=== PATIENT | female | born 1985 | race Caucasian/White ===

== ENCOUNTER → 2016-11-02 | Outpatient (CLI) | payer BC ==
[2016-11-02 15:21] LABS: CHLORIDE,CL 108 mmol/L (98-110); SODIUM,NA 139 mmol/L (136-146)
== END ==
LOC: MW.CHOBGYN 14:50
PROVIDERS: ATTEND Nurse Practitioner Women's Health
DX: Z51.81 Encounter for therapeutic drug level monitoring (principal); Z79.899 Other long term (current) drug therapy; R00.2 Palpitations; R63.4 Abnormal weight loss; M25.521 Pain in right elbow; M25.522 Pain in left elbow
CPT/HCPCS: 36415; 80048; 84443; 85652; 86140

== ENCOUNTER → 2016-11-09 | Outpatient (CLI) | payer BC ==
[2016-11-09 12:00] LABS: CHLORIDE,CL 106 mmol/L (98-110); SODIUM,NA 138 mmol/L (136-146)
== END ==
LOC: MW.CHOBGYN 11:16
PROVIDERS: ATTEND Nurse Practitioner Women's Health
DX: R63.4 Abnormal weight loss (principal); D64.9 Anemia, unspecified
CPT/HCPCS: 36415; 80053; 81001; 82607; 82728; 82746; 83550; 85025

== ENCOUNTER → 2016-11-28 | Outpatient (CLI) | payer BC | END | disposition home or self-care (01) | LOC: MW.CHOBGYN 07:57 | PROVIDERS: ATTEND Nurse Practitioner Women's Health | DX: R63.4 Abnormal weight loss (principal); R63.1 Polydipsia | CPT/HCPCS: 36415; 82533; 82627; 82670; 83498; 84144; 84402 ==

== ENCOUNTER → 2016-12-31 | Outpatient (CLI) | payer BC | LOC: MW.CHOBGYN 13:27 | PROVIDERS: ATTEND Nurse Practitioner Women's Health | DX: D64.9 Anemia, unspecified (principal); R63.1 Polydipsia; E27.0 Other adrenocortical overactivity | CPT/HCPCS: 36415; 82530; 82728; 82947; 84439 ==

== ENCOUNTER 2019-07-27 11:14 | Day surgery (SDC) | payer BC ==
[~2019-07-27 11:14] MED LIST: Lactated Ringers 1,000 ML IV SCH; Midazolam 1 MG/ML 2 ML SDV ONE; Rocuronium 100 MG/10 ML Syringe ONE; Sodium Chloride 0.9% 10 ML SDV IV PRN; Sodium Chloride 0.9% 10 ML Syringe FLUSH PRN; Sodium Chloride 0.9% 2.5 ML Syringe FLUSH PRN; Sodium Chloride 0.9% 20 ML ONE; ePHEDrine 50 MG/ML SDV ONE; fentaNYL 100 MCG/2 ML SDV ONE
[2019-07-27 13:28] VITALS: BP 103/66; PULSE 76
--- NOTE | 2019-07-27 13:40 | PCM.PREANE ---
Preanesthetic Assessment - Anesthesia/Transfusion/Family Hx Anesthesia History: Prior Anesthesia Without Reaction Family History of Anesthesia Reaction: No Transfusion History: No Prior Transfusion(s) Intubation History: Unknown - Review of Systems General: No Symptoms Pulmonary: No Symptoms Cardiovascular: No Symptoms Gastrointestinal: No Symptoms Neurological: No Symptoms Other: Reports: None - Physical Assessment NPO Status Date: 07/26/19 NPO Status Time: 00:00 Vital Signs: Last Vital Signs Temp 37.1 C 07/27/19 11:45 Pulse 76 07/27/19 11:45 Resp 16 07/27/19 11:45 BP 103/66 07/27/19 11:45 Pulse Ox 97 07/27/19 11:45 Height: 5 ft 1 in Weight: 53.07 kg ASA Class: 2 Mental Status: Alert & Oriented x3 Airway Class: Mallampati = 2 Dentition: Reports: Normal Dentition Thyro-Mental Finger Breadths: 3 Mouth Opening Finger Breadths: 2 (small mouth) ROM/Head Extension: Full Lungs: Clear to Auscultation, Normal Respiratory Effort Cardiovascular: Regular Rate, Regular Rhythm - Lab Values: Laboratory Last Values WBC 8.23 K/uL (4.0-11.0) 07/27/19 12:04 RBC 4.57 M/uL (4.30-5.90) 07/27/19 12:04 Hgb 13.1 g/dL (12.0-16.0) 07/27/19 12:04 Hct 39.4 % (36.0-46.0) 07/27/19 12:04 MCV 86.2 fL (80.0-98.0) 07/27/19 12:04 MCH 28.7 pg (27.0-32.0) 07/27/19 12:04 MCHC 33.2 g/dL (31.0-37.0) 07/27/19 12:04 RDW Std Deviation 41.8 fl (28.0-62.0) 07/27/19 12:04 RDW Coeff of Jefry 13 % (11.0-15.0) 07/27/19 12:04 Plt Count 233 K/uL (150-400) 07/27/19 12:04 MPV 10.70 fL (7.40-12.00) 07/27/19 12:04 Nucleated RBC % 0.0 /100WBC 07/27/19 12:04 Nucleated RBCs # 0 K/uL 07/27/19 12:04 HCG, Qual NEGATIVE (NEG) 07/27/19 12:04 - Allergies Allergies/Adverse Reactions: Allergies Allergy/AdvReac Type Severity Reaction Status Date / Time No Known Allergies Allergy Verified 07/14/19 14:32 - Blood Blood Available: No - Anesthesia Plan Pre-Op Medication Ordered: None - Acknowledgements Anesthesia Type Planned: General Anesthesia Pt an Appropriate Candidate for the Planned Anesthesia: Yes Alternatives and Risks of Anesthesia Discussed w Pt/Guardian: Yes Pt/Guardian Understands and Agrees with Anesthesia Plan: Yes PreAnesthesia Questionnaire HEENT History: Reports: None Cardiovascular History: Reports: None Respiratory History: Reports: None Gastrointestinal History: Reports: None Genitourinary History: Reports: Pyelonephritis, UTI, Recurrent 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: , 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 Other OB/BYN History: Csx3 Other Musculoskeletal History: occasional neck pain Neurological History: Reports: None, Vertigo Other Neuro History: testing for multiple sclerosis Psychiatric History: Reports: Anxiety Endocrine/Metabolic History: Reports: None Hematologic History: Reports: None Immunologic History: Reports: None Oncologic (Cancer) History: Reports: None Dermatologic History: Reports: None - Past Surgical History Head Surgeries/Procedures: Reports: None HEENT Surgical History: Reports: Other (See Below) Other HEENT Surgeries/Procedures: skin tag removed from ear as a child Cardiovascular Surgical History: Reports: None Respiratory Surgical History: Reports: None GI Surgical History: Reports: Colonoscopy Female Surgical History: Reports: Section (x3) Endocrine Surgical History: Reports: None Neurological Surgical History: Reports: None Musculoskeletal Surgical History: Reports: None Oncologic Surgical History: Reports: None Dermatological Surgical History: Reports: None - SUBSTANCE USE Smoking Status *Q: Former Smoker Tobacco Use Within Last Twelve Months: Snuff/Dip - HOME MEDS Home Medications: Home Meds Cholecalciferol (Vitamin D3) [Vitamin D3] 1 tab PO DAILY 07/14/19 [History] Magnesium 200 mg PO DAILY 07/14/19 [History] - CURRENT (IN HOUSE) MEDS Current Meds: Current Medications Lactated Ringer's (Ringers, Lactated) 1,000 mls @ 100 mls/hr IV ASDIRECTED PREETHI Sodium Chloride (Saline Flush) 10 ml FLUSH ASDIRECTED PRN PRN Reason: Keep Vein Open Sodium Chloride (Saline Flush) 2.5 ml FLUSH ASDIRECTED PRN PRN Reason: Keep Vein Open Sodium Chloride (Normal Saline) 10 ml IV ASDIRECTED PRN PRN Reason: IV Use Discontinued Medications Ephedrine Sulfate (Ephedrine Sulfate) Confirm Administered Dose 50 mg .ROUTE .STK-MED ONE Stop: 07/27/19 10:46 Fentanyl (Sublimaze) Confirm Administered Dose 100 mcg .ROUTE .STK-MED ONE Stop: 07/27/19 10:45 Lactated Ringer's (Ringers, Lactated) 1,000 mls @ 100 mls/hr IV ASDIRECTED PREETHI Sodium Chloride (Normal Saline) Confirm Administered Dose 20 mls @ as directed .ROUTE .STK-MED ONE Stop: 07/27/19 10:49 Midazolam HCl (Versed 1 Mg/Ml) Confirm Administered Dose 2 mg .ROUTE .STK-MED ONE Stop: 07/27/19 10:45 Rocuronium [place] (Zemuron) Confirm Administered Dose 100 mg .ROUTE .STK-MED ONE Stop: 07/27/19 10:46 Sodium Chloride (Saline Flush) 10 ml FLUSH ASDIRECTED PRN PRN Reason: Keep Vein Open Sodium Chloride (Saline Flush) 2.5 ml FLUSH ASDIRECTED PRN PRN Reason: Keep Vein Open Sodium Chloride (Normal Saline) 10 ml IV ASDIRECTED PRN PRN Reason: IV Use Sodium Chloride (Saline Flush) 10 ml FLUSH ASDIRECTED PRN PRN Reason: Keep Vein Open Sodium Chloride (Saline Flush) 2.5 ml FLUSH ASDIRECTED PRN PRN Reason: Keep Vein Open Sodium Chloride (Normal Saline) 10 ml IV ASDIRECTED PRN PRN Reason: IV Use Succinylcholine Chloride (Succinylcholine Chloride) Confirm Administered Dose 200 mg .ROUTE .STK-MED ONE Stop: 07/27/19 10:46
== END 2019-07-27 14:30 | disposition home or self-care (01) ==
LOC: MW.SDS 11:14
PROVIDERS: ATTEND Obstetrics & Gynecology
DX: N92.1 Excessive and frequent menstruation with irregular cycle (principal); Z53.8 Procedure and treatment not carried out for other reasons
CPT/HCPCS: 36415; 84703; 85027; J0330; J7120; J2250; J3010

== ENCOUNTER 2019-08-17 07:50 | Day surgery (SDC) | payer BC ==
[~2019-08-17 07:50] MED LIST changes: -Midazolam 1 MG/ML 2 ML SDV ONE; -Rocuronium 100 MG/10 ML Syringe ONE; -Sodium Chloride 0.9% 20 ML ONE; -ePHEDrine 50 MG/ML SDV ONE; -fentaNYL 100 MCG/2 ML SDV ONE
--- NOTE | 2019-08-17 08:30 | PCM.PREANE ---
Preanesthetic Assessment - Anesthesia/Transfusion/Family Hx Anesthesia History: Prior Anesthesia Without Reaction Family History of Anesthesia Reaction: No Transfusion History: No Prior Transfusion(s) Intubation History: Unknown - Review of Systems General: No Symptoms Pulmonary: No Symptoms Cardiovascular: No Symptoms Gastrointestinal: No Symptoms Neurological: No Symptoms Other: Reports: None - Physical Assessment NPO Status Date: 08/16/19 Height: 5 ft 1 in Weight: 53.07 kg ASA Class: 1 Mental Status: Alert & Oriented x3 Airway Class: Mallampati = 2 Dentition: Reports: Normal Dentition ROM/Head Extension: Full Lungs: Clear to Auscultation, Normal Respiratory Effort - Lab Values: Laboratory Last Values WBC 5.12 K/uL (4.0-11.0) 08/17/19 08:13 RBC 4.44 M/uL (4.30-5.90) 08/17/19 08:13 Hgb 12.6 g/dL (12.0-16.0) 08/17/19 08:13 Hct 37.9 % (36.0-46.0) 08/17/19 08:13 MCV 85.4 fL (80.0-98.0) 08/17/19 08:13 MCH 28.4 pg (27.0-32.0) 08/17/19 08:13 MCHC 33.2 g/dL (31.0-37.0) 08/17/19 08:13 RDW Std Deviation 41.6 fl (28.0-62.0) 08/17/19 08:13 RDW Coeff of Jefry 13 % (11.0-15.0) 08/17/19 08:13 Plt Count 232 K/uL (150-400) 08/17/19 08:13 MPV 11.40 fL (7.40-12.00) 08/17/19 08:13 Nucleated RBC % 0.0 /100WBC 08/17/19 08:13 Nucleated RBCs # 0 K/uL 08/17/19 08:13 - Allergies Allergies/Adverse Reactions: Allergies Allergy/AdvReac Type Severity Reaction Status Date / Time No Known Allergies Allergy Verified 08/10/19 10:05 - Blood Blood Available: No - Anesthesia Plan Pre-Op Medication Ordered: None - Acknowledgements Anesthesia Type Planned: General Anesthesia Pt an Appropriate Candidate for the Planned Anesthesia: Yes Alternatives and Risks of Anesthesia Discussed w Pt/Guardian: Yes Pt/Guardian Understands and Agrees with Anesthesia Plan: Yes Additional Comments: anes prob list: taking oral magnesium from chiropractor for pain,AUB PLAN: ga/lma with toradol PreAnesthesia Questionnaire HEENT History: Reports: None Cardiovascular History: Reports: None Respiratory History: Reports: None Gastrointestinal History: Reports: None Genitourinary History: Reports: Pyelonephritis, UTI, Recurrent 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: , 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 Other OB/BYN History: Csx3 Musculoskeletal History: Reports: Neck Pain, Chronic Neurological History: Reports: None Psychiatric History: Reports: Anxiety, Depression Endocrine/Metabolic History: Reports: None Hematologic History: Reports: None Immunologic History: Reports: None Oncologic (Cancer) History: Reports: None Dermatologic History: Reports: None - Past Surgical History Head Surgeries/Procedures: Reports: None HEENT Surgical History: Reports: Other (See Below) Other HEENT Surgeries/Procedures: skin tag removed from ear as a child Cardiovascular Surgical History: Reports: None Respiratory Surgical History: Reports: None GI Surgical History: Reports: Colonoscopy Female Surgical History: Reports: Section Endocrine Surgical History: Reports: None Neurological Surgical History: Reports: None Musculoskeletal Surgical History: Reports: None Oncologic Surgical History: Reports: None Dermatological Surgical History: Reports: None - SUBSTANCE USE Smoking Status *Q: Former Smoker Tobacco Use Within Last Twelve Months: Cigarettes - HOME MEDS Home Medications: Home Meds Cholecalciferol (Vitamin D3) [Vitamin D3] 1 tab PO DAILY 07/14/19 [History] Magnesium 200 mg PO DAILY 07/14/19 [History] Pregabalin [Lyrica] 50 mg PO BID 08/10/19 [History] Sertraline HCl 100 mg PO DAILY 08/10/19 [History] - CURRENT (IN HOUSE) MEDS Current Meds: Current Medications Lactated Ringer's (Ringers, Lactated) 1,000 mls @ 125 mls/hr IV ASDIRECTED PREETHI Sodium Chloride (Saline Flush) 10 ml FLUSH ASDIRECTED PRN PRN Reason: Keep Vein Open Sodium Chloride (Saline Flush) 2.5 ml FLUSH ASDIRECTED PRN PRN Reason: Keep Vein Open Sodium Chloride (Normal Saline) 10 ml IV ASDIRECTED PRN PRN Reason: IV Use
[2019-08-17] MEDS ORDERED: fentaNYL 100 MCG/2 ML SDV ONE (08:51)
[2019-08-17] MEDS ORDERED: Ondansetron 4 MG/2 ML SDV ONE (08:51)
[2019-08-17] MEDS ORDERED: Midazolam 1 MG/ML 2 ML SDV ONE (08:51)
[2019-08-17] MEDS ORDERED: Rocuronium 100 MG/10 ML Syringe ONE (08:52)
[2019-08-17] MEDS ORDERED: Propofol 200 MG/20 ML SDV ONE (09:14)
[2019-08-17] MEDS ORDERED: Sugammadex Sodium 200 MG/2 ML VIAL ONE (09:52)
--- NOTE | 2019-08-17 11:26 | PCM.OPNOTE ---
- General Post-Op/Procedure Note Date of Surgery/Procedure: 08/17/19 Operative Procedure(s): Operative hysteroscopy with polypectomy, D&C Findings: Thickened heterogenous polypoid tissue along anterior left endometrium. Otherwise normal appearing uterine cavity Pre Op Diagnosis: Menometrorrhagia Post-Op Diagnosis: Same Anesthesia Technique: General ET Tube Primary Surgeon: Virginia Friedman Pathology: endometrium curretings, polypoid tissue Fluid Replacement, Intraop: 1,200 EBL in mLs: 5 Complications: none known Condition: Stable Free Text/Narrative:: Dictation [id number]
[2019-08-17] MEDS ORDERED: fentaNYL 100 MCG/2 ML SDV IVPUSH SCH (11:45)
--- NOTE | 2019-08-17 11:49 | PCM.POSTAN ---
POST ANESTHESIA ASSESSMENT - MENTAL STATUS Mental Status: Alert, Oriented - VITAL SIGNS Vital Signs: Last Vital Signs Temp 97.7 F 08/17/19 11:18 Pulse 72 08/17/19 11:43 Resp 10 L 08/17/19 11:43 BP 96/57 L 08/17/19 11:43 Pulse Ox 97 08/17/19 11:43 - RESPIRATORY Respiratory Status: Respiratory Rate WNL, Airway Patent, O2 Saturation Stable - CARDIOVASCULAR CV Status: Pulse Rate WNL, Blood Pressure Stable - GASTROINTESTINAL GI Status: No Symptoms - PAIN Pain Score: 1 - POST OP HYDRATION Hydration Status: Adequate & Stable
--- NOTE | 2019-08-17 12:34 | OR ---
SURGEON: Virginia Friedman M.D. DATE OF PROCEDURE: 08/17/2019 PREOPERATIVE DIAGNOSIS: Menometrorrhagia. POSTOPERATIVE DIAGNOSIS: Menometrorrhagia. PROCEDURES: Operative hysteroscopy with polypectomy, dilation and curettage of endometrium. PRIMARY SURGEON: Virginia Friedman MD. ANESTHESIA: General endotracheal anesthesia. FLUIDS: 1200 mL of crystalloid. FLUID DEFICIT: 100 mL of saline. ESTIMATED BLOOD LOSS: 5 mL. FINDINGS: A thickened heterogeneous anterior left endometrium. DISPOSITION: The patient to PACU, specimen to pathology. PROCEDURE DETAILS: Shira is a 33-year-old female who has ongoing difficulties with menometrorrhagia for which she has been further evaluated and there is a polypoid lesion suspected with the sonohysterogram. Discussed proceeding with surgical intervention in the form of hysteroscopy to further evaluate the endometrium, and she would like to proceed in this direction. Proper consent obtained. The patient was taken to the operating room where she underwent general endotracheal anesthesia, was placed in modified dorsal lithotomy position, prepped and draped in the usual sterile fashion. SCDs to lower extremities. Bladder was drained. A time-out was performed. Speculum was introduced in the vagina. Anterior lip of the cervix grasped with an Allis clamp. Cervix gently dilated to 7 mm. MyoSure hysteroscope was now gently introduced into the endometrial cavity. Fundus was able to be visualized. There was a right ostium followed by left ostium able to be visualized. Left ostium was slightly more obscured because of the thickened anterior heterogeneous endometrium along this region of the fundus. Otherwise, no overt lesions were visualized within the endometrial cavity. Using MyoSure device, the region of thickened endometrium was able to be resected until flush to the level of the basalis. The region was nicely shaped and photographs were taken revealing a normal-appearing uterine cavity. MyoSure device was now removed. Gentle sharp curettage was performed. Specimen to pathology. All instruments removed from the vagina. Sponge count was correct. The patient tolerated the procedure well. It was noted during the procedure that the tubing to the filter canister had become disconnected, however, was reconnected and whatever tissue specimen had been extravasated was able to be collected. This will all be sent to pathology for further analysis. JAVIER / KARINA /[id number]
--- NOTE | 2019-08-17 13:20 | PCM48HPAN ---
Post Anesthesia Note - EVALUATION WITHIN 48HRS OF ANESTHETIC Vital Signs in Normal Range: Yes Patient Participated in Evaluation: Yes Respiratory Function Stable: Yes Airway Patent: Yes Cardiovascular Function Stable: Yes Hydration Status Stable: Yes Pain Control Satisfactory: Yes Nausea and Vomiting Control Satisfactory: Yes Mental Status Recovered: Yes Vital Signs: Last Vital Signs Temp 97.7 F 08/17/19 11:18 Pulse 72 08/17/19 11:43 Resp 10 L 08/17/19 11:43 BP 96/57 L 08/17/19 11:43 Pulse Ox 97 08/17/19 11:43
[2019-08-17 14:03] VITALS: BP 90/54; PULSE 67
== END 2019-08-17 13:15 | disposition home or self-care (01) ==
LOC: MW.SDS 07:50
PROVIDERS: ATTEND Obstetrics & Gynecology
DX: N92.1 Excessive and frequent menstruation with irregular cycle (principal); E55.9 Vitamin D deficiency, unspecified; F32.9 Major depressive disorder, single episode, unspecified; F41.9 Anxiety disorder, unspecified; Z87.891 Personal history of nicotine dependence; Z79.899 Other long term (current) drug therapy
CPT/HCPCS: 36415; 58558; 84703; 85027; J0131; J2250; J2405; J2704; J3010; J3490; J7120; 00952; 88305